=== PATIENT | male | born 1995 | race African-American/Black ===

== ENCOUNTER 2022-07-30 13:03 | Outpatient (CLI) | payer OTHER | END 2022-07-30 13:04 | disposition home or self-care (01) | LOC: CSHMRI 13:03 | PROVIDERS: ATTEND Physical Medicine & Rehabilitation Pain Medicine | DX: S90.01XA Contusion of right ankle, initial encounter (principal); S90.31XA Contusion of right foot, initial encounter; M25.571 Pain in right ankle and joints of right foot; M25.871 Other specified joint disorders, right ankle and foot; M24.274 Disorder of ligament, right foot; M77.8 Other enthesopathies, not elsewhere classified; T14.90XS Injury, unspecified, sequela ==

== ENCOUNTER 2022-08-27 10:38 | Emergency (ER) | payer SELFPAY | END 2022-08-27 14:05 | disposition home or self-care (01) | LOC: CSHERS 10:38 | DX: M25.571 Pain in right ankle and joints of right foot (principal); F17.210 Nicotine dependence, cigarettes, uncomplicated | CPT/HCPCS: 99283 ==